=== PATIENT | female | born 1995 | race Caucasian/White ===

== ENCOUNTER 2024-12-22 04:08 | Emergency (ER) | payer MEDICAID ==
[~2024-12-22] VITALS: Ht 154.9 cm; Wt 87.0 kg
[2024-12-22 04:40] LABS: BASOPHILS % 0.1 % (0.0-2.0); EOSINOPHILS % 0.3 % (0.0-5.0); HEMATOCRIT. 37.7 % (36.0-48.0); HEMOGLOBIN. 12.3 g/dL (12.0-16.0); LYMPHOCYTES % 31.4 % (20.0-50.0); MEAN PLATELET VOLUME 9.3 fl (7.4-10.4); MONOCYTES % 5.2 % (2.0-8.0); NEUTROPHILS % 63.0 % (40.0-76.0); PLATELET 201 x1000/uL (130-400); RED BLOOD CELL COUNT 4.60 mill/uL (4.2-5.4); RED CELL DISTRIBUTION WIDTH 15.7 % (11.6-14.6)
[2024-12-22 04:43] VITALS: TEMP 36.7; O2SAT 99
[2024-12-22 04:51] LABS: INR 0.9
[2024-12-22 04:57] LABS: CREATININE 0.7 mg/dL (0.6-1.0)
[2024-12-22 04:58] LABS: UREA NITROGEN BLOOD 11 mg/dL (9-23)
[2024-12-22 04:59] VITALS: BP 122/86; PULSE 79; RESP 20; O2SAT 98
[2024-12-22 04:59] LABS: ASPARTATE AMINOTRANSFERASE 13 IU/L (<34)
[2024-12-22 05:00] LABS: BILIRUBIN DIRECT < 0.1 mg/dL (<=3.0); BILIRUBIN TOTAL 0.3 mg/dL (0.1-1.0); PROTEIN TOTAL 6.7 g/dL (6.0-8.3)
== END 2024-12-22 05:20 | disposition short-term general hospital (02) ==
LOC: ER 04:08
DX: O26.893 Other specified pregnancy related conditions, third trimester (principal); R10.9 Unspecified abdominal pain; O75.89 Other specified complications of labor and delivery; Z3A.40 40 weeks gestation of pregnancy
CPT/HCPCS: 36415; 76805; 80048; 80076; 85025; 86850; 86900; 99291